=== PATIENT | male | born 1935 | race Caucasian/White ===

== ENCOUNTER 2017-11-10 07:55 | Outpatient (CLI) | payer MEDICARE, OTHER ==
--- NOTE | 2017-11-10 09:25 | ULT ---
RENAL ULTRASOUND: HISTORY: Evaluate renal cyst. FINDINGS: Multiple longitudinal and transverse images of the kidneys and bladder are obtained using a multihert z curvilinear transducer. Real-time and color flow images were used to evaluate the kidneys and blad babatunde. Both kidneys are of normal contour, axis, and size. No definite evidence of renal masses or lesions seen. There is a prominent left renal dromedary hump. No evidence of significant mass lesions seen. No evidence of hydronephrosis is seen. The bladder is unremarkable. IMPRESSION: Normal renal ultrasound. POS: [facility]
== END 2017-11-10 07:56 | disposition home or self-care (01) ==
LOC: ULT 07:55
PROVIDERS: ATTEND Urology
DX: N28.1 Cyst of kidney, acquired (principal); C61 Malignant neoplasm of prostate; N20.0 Calculus of kidney
CPT/HCPCS: 76770

== ENCOUNTER 2018-02-20 13:27 | Outpatient (CLI) | payer MEDICARE, OTHER | END 2018-02-20 13:28 | disposition home or self-care (01) | LOC: BICULT 13:27 | PROVIDERS: ATTEND Urology | DX: N39.45 Continuous leakage (principal); C61 Malignant neoplasm of prostate; N28.1 Cyst of kidney, acquired | CPT/HCPCS: 76770 ==

== ENCOUNTER 2018-03-06 09:13 | Outpatient (CLI) | payer MEDICARE, OTHER ==
--- NOTE | 2018-03-07 10:32 | CT ---
PRE AND POST CONTRAST ENHANCED CT IMAGES ABDOMEN: 03/06/2018 COMPARISON: 01/03/2017 TECHNIQUE: Pre and post contrast enhanced CT images of the abdomen and pelvis are obtained. FINDINGS: Extensive scoliotic change is seen in the lumbar spine. A pedicle screw is seen in the mid lumbar sp ine vertebrae. The lung bases are unremarkable, except for some scarring in the left lower lobe, unchanged since the previous comparison exam. The liver is stable. A small area of hypodensity is seen at the central aspect of the right hepatic lobe, unchanged in size or shape since the previous exam. No newly developed hepatic lesion is seen. The spleen is unremarkable. The pancreas contains a small area of central pancreatic body calcificat ions, which is also stable and unchanged. No significant interval changes or newly developed masses seen. The adrenal glands are unremarkable. The right kidney is unremarkable. The left kidney contains a small cyst at the posterior aspect of the mid left kidney. This is also s table and unchanged. No evidence of significant paraaortic lymphadenopathy is seen. IMPRESSION: Stable CT appearance of the liver and pancreatic and left renal lesions, not significantly changed si nce the previous exam from 01/03/2017. POS: [facility]
== END 2018-03-06 09:14 | disposition home or self-care (01) ==
LOC: SCSCT 09:13
PROVIDERS: ATTEND Urology
DX: N28.1 Cyst of kidney, acquired (principal); N28.9 Disorder of kidney and ureter, unspecified; K76.9 Liver disease, unspecified; K86.9 Disease of pancreas, unspecified
CPT/HCPCS: 74170; 82565

== ENCOUNTER 2018-12-04 10:25 | Outpatient (CLI) | payer MEDICARE, OTHER ==
--- NOTE | 2018-12-04 11:20 | ULT ---
BILATERAL RENAL ULTRASOUND: Date: 12/04/18 INDICATION: Hematuria. Comparison made to renal ultrasound of 02/20/[address] abdomen of 03/06/18. The prior ultrasound showed a hypoechoic mass-like lesion in the left kidney. No definite mass was de monstrated on the CT of 03/06/18. FINDINGS: Right kidney measures 9.6 cm length. No hydronephrosis or mass seen on the right. There is mild corti giorgi thickening and there is mild increased cortical echogenicity. Left kidney measures 10.2 cm length. Again noted is a hypoechoic mass-like lesion in the left mid shirley al cortex measuring 2.5-3.0 cm. This is similar in appearance to the prior ultrasound exam. There is no hydronephrosis. Mild increased cortical echogenicity. Urinary bladder is only mildly distended and appears unremarkable. I cannot exclude bladder wall thic kening. IMPRESSION: Ultrasound continues to show hypoechoic mass-like finding in the left renal cortex, similar to the pr ior exam. Suggest repeat CT abdomen/pelvis with and without contrast to confirm stability of the olu l findings. CT would also give better evaluation of the bladder in this patient with hematuria. POS: [facility]
[2018-12-04 11:22] LABS: ALT (SGPT) 14 U/L (8-55); AST (SGOT) 16 U/L (5-34); Albumin 3.9 g/dL (3.4-4.8); Alkaline Phosphatase 63 U/L (40-150); Anion Gap 11 mmol/L (10-20); BUN (Urea Nitrogen) 23 mg/dL (8.4-25.7); Bilirubin, Total 0.5 mg/dL (0.2-1.2); Calc. Creatinine Clearance 0 mL/min (70-130); Calcium 9.3 mg/dL (7.8-10.44); Carbon Dioxide 24 mmol/L (23-31); Chloride 105 mmol/L (98-107); Estimated GFR-MDRD 61; Globulin 2.8 g/dL (2.4-3.5); Glucose 82 mg/dL (83-110); Potassium 4.2 mmol/L (3.5-5.1); Protein, Total 6.7 g/dL (5.8-8.1); Sodium 136 mmol/L (136-145)
== END 2018-12-04 10:26 | disposition home or self-care (01) ==
LOC: SCSULT 10:25
PROVIDERS: ATTEND Urology
DX: C61 Malignant neoplasm of prostate (principal); N20.0 Calculus of kidney
CPT/HCPCS: 36415; 76770; 80053; 84153